=== PATIENT | female | born 1950 | race Caucasian/White ===

== ENCOUNTER → 2016-05-29 | Outpatient (CLI) | payer OTHER ==
[~2016-05-29] MED LIST: ASPCH81X PO; ASPI1TAB83 PO; BIOT1CAP8 PO; CALC-20 PO; GLUC500C4 PO; LUTE1CAP6 PO; MEGA VITAMIN PO; MULTCAP7 PO; OMEGCAP2 PO; PRLSR20 PO; PSYL55.43 PO; SENN-61 PO; VITA400C15 PO; ZINC100T2 PO
--- NOTE | 2016-05-29 12:31 | MAMMOGRAPHY REPORT ---
BILATERAL DIGITAL SCREENING MAMMOGRAM WITH CAD: 05/29/2016 CLINICAL HISTORY: Routine screening. Patient has no complaints. TECHNIQUE: Current study was also evaluated with a Computer Aided Detection (CAD) system. Bilatera l CC and MLO views were obtained. COMPARISON: Comparison is made to exams dated: 05/28/2015 mammogram, 05/25/2014 mammogram, 05/23/2013 mammogram, 05/20/2012 mammogram, 05/15/2011 mammogram, and 05/21/2010 mammogram - [facility]. BREAST COMPOSITION: The tissue of both breasts is almost entirely fatty. FINDINGS: No suspicious masses, calcifications, or areas of architectural distortion are noted in e ither breast. There are multiple new small round circumscribed fat density masses with rim calcific ation in the left 12:00 breast, consistent with benign oil cysts from fat necrosis. Other scattered benign-appearing calcifications are stable. IMPRESSION: ACR BI-RADS CATEGORY 2: BENIGN There is no mammographic evidence of malignancy. A 1 year screening mammogram is recommended. The p atient will receive written notification of the results. Approximately 10% of breast cancers are not detected with mammography. A negative mammographic repor t should not delay biopsy if a clinically suggestive mass is present. Qing Vinson M.D. /:05/29/2016 11:11:32 Application Technician: Latanya BURRR, M, [facility] letter sent: Normal 1/2 BI-RADS Code: ACR BI-RADS Category 2: Benign
== END | disposition home or self-care (01) ==
LOC: C.MAMM 10:04
PROVIDERS: ATTEND Internal Medicine
DX: Z12.31 Encounter for screening mammogram for malignant neoplasm of breast (principal)

== ENCOUNTER → 2016-06-16 | Outpatient (CLI) | payer OTHER ==
--- NOTE | 2016-06-16 08:30 | DIAGNOSTIC IMAGING REPORT ---
RENAL ULTRASOUND HISTORY: Pain. Nausea. R10.31 Bilateral lower abdominal paint complaining of sporadic COMPARISON: None. FINDINGS: Right kidney: Maximum dimension 10.1 cm. No evidence for hydronephrosis Normal corticomedullary differentiation and cortical thickness. Left kidney: Maximum dimension 10.5 cm. No evidence for hydronephrosis. Normal corticomedullary differentiation and cortical thickness. Bladder: No bladder wall thickening. The bilateral ureteral jets were identified. IMPRESSION: Normal study Electronically signed by: Guanaco Durán M.D. 06/16/2016 8:29 AM Dictated Date/Time: 06/16/2016 8:28 AM
== END ==
LOC: C.ULTR 07:50
PROVIDERS: ATTEND Internal Medicine
DX: R10.31 Right lower quadrant pain (principal); R10.32 Left lower quadrant pain

== ENCOUNTER → 2016-07-16 | Day surgery (SDC) | payer OTHER ==
[2016-07-07 09:49] VITALS: BMI 34.0
[~2016-07-16] VITALS: Ht 149.9 cm; Wt 79.5 kg
[~2016-07-16] MED LIST changes: -ASPI1TAB83 PO; +LIDOCAINE HCL 2% 2 ML VIAL (20MG/ML) ONE; +MIDAZOLAM HCL 1 MG/ML 2ML VIAL ONE; +ONDANSETRON INJ 2 MG/ML 2 ML VIAL ONE; +PROPOFOL IV EMULSION 10 MG/ML 20 ML VIAL IV ONE
[2016-07-16 11:22] VITALS: Ht 149.9 cm; Wt 79.5 kg
--- NOTE | 2016-07-16 11:37 | Endo History and Physical ---
History & Physical Date of Service: Jul 16, 2016. Chief Complaint: Jalen lower abd pain Referring Physician: Dr. Devries History of Present Illness 66 yo CF who presents for colonoscopy secondary to bilateral lower quadrant abdominal pain. Past Surgical History Hx Cardiac Surgery: No Hx Internal Defibrillator: No Hx Pacemaker: No Hx Abdominal Surgery: No Hx Post-Op Nausea and Vomiting: No Hx Cancer Surgery: No Hx Thoracic Surgery: No Hx Orthopedic: Yes (LEFT/RT SHOULDER ARTHROSCOPY) Hx Urinary Tract Surgery: No Family History IBD Social History Smoking Status: Never Smoker Hx Substance Use: No Hx Alcohol Use: Yes (OCCASSIONALLY) Allergies Coded Allergies: Sulfa Drugs (Verified Allergy, Mild, YEAST INFECTIONS, 07/07/16) Sulindac (Verified Allergy, Mild, HIVES, 07/07/16) Penicillins (Verified Adverse Reaction, Unknown, YEAST, 07/07/16) Current Medications Reported Home Medications Medications Dose Route/Sig Max Daily Dose Days Date Category [Antonio Vitamin] 1 Tab PO 3XWK 07/07/16 Reported Eye Vitamins (Multiple Vitamins W/ Minerals) 1 Cap Cap 1 Cap PO BID 07/07/16 Reported Aspirin Chewable (Aspirin) 81 Mg Chew 81 Mg PO QPM 07/07/16 Reported Prilosec (Omeprazole) 20 Mg Capcr 20 Mg PO QAM 07/07/16 Reported Biotin 1 Mg Cap 1 Cap PO QAM 11/21/15 Reported Metamucil Powder (Psyllium Hydrophilic Mucilloid) Powd 1 Dose PO HS 07/31/15 Reported Senokot (Senna) 8.6 Mg Tab 1 Tab PO QAM 07/31/15 Reported Vitamin E (mn-Ifumu-Qpuakfnakv Acetate) 400 Inter.unit Cap 400 Inter.unit PO QAM 07/25/12 Reported Glucosamine (Glucosamine Sulfate) 500 Mg Cap 500 Mg PO QAM 07/20/12 Reported Lutein 40 Mg Cap 40 Mg PO QAM 07/20/12 Reported Zinc 100 Mg Tab 1 Tab PO QAM 07/20/12 Reported Fish Oil (Salem-3 Fatty Acids) 1 Cap Cap 1 Capsule PO BIDM 07/20/12 Reported Calcium 600 + D (Calcium Carbonate-Vitamin D) 1 Tab Tab 1 Tablets PO QAM 07/20/12 Reported Vital Signs Weight (Kilograms): 79.55 Height (Feet): 4 Height (Inches): 11 Date Time Temp Pulse Resp B/P Pulse Ox O2 Delivery O2 Flow Rate FiO2 07/16/16 11:29 36.7 65 18 140/88 94 Room Air Physical Exam General Appearance: WD/WN, no apparent distress Respiratory/Chest: Auscultation: breath sounds normal Cardiovascular: Heart Auscultation: RRR Abdomen: Bowel Sounds: normal Inspection & Palpation: soft, non-distended, no tenderness, guarding & rebound Assessment and Plan Assessment: 66 yo CF who presents for colonoscopy secondary to bilateral lower quadrant abdominal pain. Plan: Proceed with colonoscopy.
--- NOTE | 2016-07-16 12:38 | GI REPORT ---
Procedure Date: 07/16/2016 11:54 AM Procedure: Colonoscopy Indications: Abdominal pain in the left lower quadrant, Abdominal pain in the right lower quadrant Medicines: Monitored Anesthesia Care Complications: No immediate complications. Estimated Blood Loss: Estimated blood loss: none. Procedure: Pre-Anesthesia Assessment: - Prior to the procedure, a History and Physical was performed, and patient medications and allergies were reviewed. The patient's tolerance of previous anesthesia was also reviewed. The risks and benefits of the procedure and the sedation options and risks were discussed with the patient. All questions were answered, and informed consent was obtained. Prior Anticoagulants: The patient has taken no previous anticoagulant or antiplatelet agents. ASA Grade Assessment: II - A patient with mild systemic disease. After reviewing the risks and benefits, the patient was deemed in satisfactory condition to undergo the procedure. After I obtained informed consent, the scope was passed under direct vision. Throughout the procedure, the patient's blood pressure, pulse, and oxygen saturations were monitored continuously. The scope was introduced through the anus and advanced to the terminal ileum. The colonoscopy was performed without difficulty. The patient tolerated the procedure well. The quality of the bowel preparation was good. The terminal ileum, ileocecal valve, appendiceal orifice, and rectum were photographed. Findings: Scattered small-mouthed diverticula were found in the entire colon. Non-bleeding internal hemorrhoids were found during retroflexion. The hemorrhoids were small. Impression: - Diverticulosis in the entire examined colon. - Non-bleeding internal hemorrhoids. - No specimens collected. Recommendation: - Resume previous diet. - Continue present medications. - Repeat colonoscopy in 10 years for surveillance. - Return to primary care physician as previously scheduled. Josue Clancy, 07/16/2016 12:38:01 PM This report has been signed electronically. Note Initiated On: 07/16/2016 11:54 AM I attest to the content of the Intraoperative Record and orders documented therein, exceptions below
--- NOTE | 2016-07-16 12:39 | Discharge Instructions ---
Endoscopy Patient Instructions Date / Procedure(s) Performed Jul 16, 2016. Colonoscopy Allergy Information Coded Allergies: Sulfa Drugs (Verified Allergy, Mild, YEAST INFECTIONS, 07/07/16) Sulindac (Verified Allergy, Mild, HIVES, 07/07/16) Penicillins (Verified Adverse Reaction, Unknown, YEAST, 07/07/16) Discharge Date / Findings Jul 16, 2016. Diverticulosis Internal hemorrhoids Medication Instructions OK to resume all medications today as prescribed Reported Home Medications Medications Dose Route/Sig Max Daily Dose Days Date Category [Antonio Vitamin] 1 Tab PO 3XWK 07/07/16 Reported Eye Vitamins (Multiple Vitamins W/ Minerals) 1 Cap Cap 1 Cap PO BID 07/07/16 Reported Aspirin Chewable (Aspirin) 81 Mg Chew 81 Mg PO QPM 07/07/16 Reported Prilosec (Omeprazole) 20 Mg Capcr 20 Mg PO QAM 07/07/16 Reported Biotin 1 Mg Cap 1 Cap PO QAM 11/21/15 Reported Metamucil Powder (Psyllium Hydrophilic Mucilloid) Powd 1 Dose PO HS 07/31/15 Reported Senokot (Senna) 8.6 Mg Tab 1 Tab PO QAM 07/31/15 Reported Vitamin E (hz-Dxsqn-Vxljvcdwid Acetate) 400 Inter.unit Cap 400 Inter.unit PO QAM 07/25/12 Reported Glucosamine (Glucosamine Sulfate) 500 Mg Cap 500 Mg PO QAM 07/20/12 Reported Lutein 40 Mg Cap 40 Mg PO QAM 07/20/12 Reported Zinc 100 Mg Tab 1 Tab PO QAM 07/20/12 Reported Fish Oil (Alden-3 Fatty Acids) 1 Cap Cap 1 Capsule PO BIDM 07/20/12 Reported Calcium 600 + D (Calcium Carbonate-Vitamin D) 1 Tab Tab 1 Tablets PO QAM 07/20/12 Reported Provider Instructions Activity Restrictions - No exercising or heavy lifting for 24 hours. - Do not drink alcohol the day of the procedure. - Do not drive a car or operate machinery until the day after the procedure. - Do not make any important decisions or sign important papers in 24 hours after the procedure. Following Day: - Return to full activity which may include returning to work/school. Diet Start your diet with liquids and light foods (jello, soup, juice, toast). Then eat your usual diet if not nauseated. Treatment For Common After Affects For mild abdominal pain, bloating, or excessive gas: - Rest - Eat lightly - Lie on right side Follow-Up Information Follow-up with Dr. Devries as scheduled Anesthesia Information What You Should Know You have had a procedure that required some medicine to reduce anxiety and discomfort. This treatment is called moderate sedation. After receiving the treatment, you may be sleepy, but you will be able to breathe on your own. The effects of the treatment may last for several hours. Follow these instructions along with Activity/Diet recommendations noted above: * Do NOT do anything where dizziness or clumsiness would be dangerous. * Rest quietly at home today, then you can be up and about tomorrow. * Have a responsible person stay with you the rest of today. * You may have had an I.V. today. If so, you may take the dressing off later today. Recommendations Call your doctor if: * Trouble breathing * Continuous vomiting for more than 24 hours * Temperature above 101 degrees * Severe abdominal pain or bloating * Pain not relieved by pain medicine ordered * There is increased drainage or redness from any incision * A large amount of rectal bleeding greater than 2-3 tablespoons. (If you had a polyp/s removed or have hemorrhoids, a small amount of blood - from the rectum is to be expected.) * You have any unanswered questions or concerns. IN THE EVENT OF A SERIOUS EMERGENCY, GO TO THE NEAREST EMERGENCY ROOM Your discharge instructions were prepared by provider Josue Clancy. Patient Instructions Signature Page Latoya Moran Patient (or Guardian) Signature/Date: I have read and understand the instructions given to me by my caregivers. Caregiver/RN/Doctor Signature/Date: The above-named patient and/or guardian has received patient instructions on this date. + Original Patient Signature Page (only) stays with chart. Please make copy for patient.
[2016-07-16 12:48] VITALS: BP 143/85; PULSE 62; O2SAT 96
--- NOTE | 2016-07-16 14:53 | Anesthesiology Progress Note ---
Anesthesia Post Op Note Date & Time Jul 16, 2016 at 14:52 Vital Signs Pain Intensity: 0 Vital Signs Past 12 Hours Date Time Temp Pulse Resp B/P Pulse Ox O2 Delivery O2 Flow Rate FiO2 07/16/16 12:48 62 16 143/85 96 Room Air 07/16/16 12:33 69 16 143/85 95 Room Air 07/16/16 12:18 70 16 115/57 95 Room Air 07/16/16 11:29 36.7 65 18 140/88 94 Room Air Notes Mental Status: alert / awake / arousable, participated in evaluation Pt Amnestic to Procedure: Yes Nausea / Vomiting: adequately controlled Pain: adequately controlled Airway Patency, RR, SpO2: stable & adequate BP & HR: stable & adequate Hydration State: stable & adequate Anesthetic Complications: no major complications apparent
== END | disposition home or self-care (01) ==
LOC: C.GI 11:08
PROVIDERS: ATTEND Internal Medicine
DX: R10.31 Right lower quadrant pain (principal); R10.32 Left lower quadrant pain; K57.30 Diverticulosis of large intestine without perforation or abscess without bleeding; K64.8 Other hemorrhoids; Z79.82 Long term (current) use of aspirin

== ENCOUNTER → 2016-07-23 | Outpatient (CLI) | payer OTHER ==
[~2016-07-23] MED LIST changes: -LIDOCAINE HCL 2% 2 ML VIAL (20MG/ML) ONE; -MIDAZOLAM HCL 1 MG/ML 2ML VIAL ONE; -ONDANSETRON INJ 2 MG/ML 2 ML VIAL ONE; -PROPOFOL IV EMULSION 10 MG/ML 20 ML VIAL IV ONE
[2016-07-23 13:52] LABS: ESTIMATED AVERAGE GLUCOSE 123 mg/dl; HA1C FLAG Normal (Normal)
[2016-07-23 15:21] LABS: ALB/GLOB RATIO 0.9 (0.9-2); ALT/SGPT 27 U/L (12-78); AST/SGOT 22 U/L (15-37); BLOOD UREA NITROGEN 13 mg/dl (7-18); BUN/CREATININE RATIO 19.2 (10-20); CALCIUM 8.6 mg/dl (8.5-10.1); CARBON DIOXIDE 28 mmol/L (21-32); CHLORIDE 109 mmol/L (98-107); CHOLESTEROL 188 mg/dl (0-200); CREATININE 0.68 mg/dl (0.60-1.20); GLUCOSE 105 mg/dl (70-99); SODIUM 142 mmol/L (136-145)
[2016-07-23 15:23] LABS: ALKALINE PHOSPHATASE 84 U/L (45-117); CHOLESTEROL/HDL RATIO 2.8; HDL CHOLESTEROL 67 mg/dl; LDL CHOLESTEROL CALCULATED 110 mg/dl; TRIGLYCERIDES 53 mg/dl (0-150); VERY LOW DENSITY LIPOPROT CALC 11 mg/dl
--- NOTE | 2016-07-28 12:40 | CODING QUERY MEDICAL NECESSITY ---
SUPPORTING DIAGNOSIS NEEDED A supporting diagnosis is required for the test/procedure performed on this patient in order for us to be reimbursed by the patient's insurance. Please provide a supporting diagnosis for the following test/procedure listed below next to the test name along with your signature. *If there is no additional diagnosis for this patient that would support the following test/procedure please document that below next to the test/procedure. Test(s)/Procedure(s) that require a supporting diagnosis: DOS 07/23 * Hba1c DIAGNOSIS: * Lipids DIAGNOSIS: Provider Signature: Date: Thank you Aide [facility] Health Information Management Once completed, please kindly fax back to [phone] For questions please call [phone]
== END | disposition home or self-care (01) ==
LOC: C.LABBC 09:18
PROVIDERS: ATTEND Internal Medicine
DX: R73.03 Prediabetes (principal); E88.9 Metabolic disorder, unspecified

== ENCOUNTER → 2017-06-01 | Outpatient (CLI) | payer OTHER ==
--- NOTE | 2017-06-02 07:57 | MAMMOGRAPHY REPORT ---
BILATERAL DIGITAL SCREENING MAMMOGRAM TOMOSYNTHESIS WITH CAD: 06/01/2017 CLINICAL HISTORY: Routine screening. TECHNIQUE: Breast tomosynthesis in addition to standard 2D mammography was performed. Current study was also evaluated with a Computer Aided Detection (CAD) system. COMPARISON: Comparison is made to exams dated: 05/29/2016 mammogram, 05/28/2015 mammogram, 05/25/2014 m ammogram, 05/23/2013 mammogram, 05/20/2012 mammogram, and 05/15/2011 mammogram - [facility] nter. BREAST COMPOSITION: The tissue of both breasts is almost entirely fatty. FINDINGS: There are innumerable subcentimeter benign oil cysts throughout the superior left breast. A 5 mm round circumscribed mass in the slightly lateral, middle one third of the right breast on the cc view is unchanged in size dating back to at least 2012, therefore considered benign. No suspicio us spiculated or irregular mass, architectural distortion or cluster of microcalcifications is seen. IMPRESSION: ACR BI-RADS CATEGORY 1: NEGATIVE There is no mammographic evidence of malignancy. A 1 year screening mammogram is recommended. The pa tient will receive written notification of the results. Approximately 10% of breast cancers are not detected with mammography. A negative mammographic report should not delay biopsy if a clinically suggestive mass is present. Agata Schwartz M.D. ay/:06/01/2017 16:28:38 Commercial Sales Consultant: Markie LEONARD)(Ibrahima), [facility] letter sent: Normal 1/2 BI-RADS Code: ACR BI-RADS Category 1: Negative
== END | disposition home or self-care (01) ==
LOC: C.MAMM 10:03
PROVIDERS: ATTEND Internal Medicine
DX: Z12.31 Encounter for screening mammogram for malignant neoplasm of breast (principal)

== ENCOUNTER → 2017-08-14 | Outpatient (CLI) | payer OTHER ==
[2017-08-14 13:08] LABS: HEMOGLOBIN A1C 5.9 % (4.5-5.6)
[2017-08-14 13:52] LABS: BLOOD UREA NITROGEN 15 mg/dl (7-18); CREATININE 0.69 mg/dl (0.60-1.20); GLUCOSE 109 mg/dl (70-99)
[2017-08-14 13:53] LABS: ALT/SGPT 35 U/L (12-78); AST/SGOT 24 U/L (15-37); CALCIUM 8.4 mg/dl (8.5-10.1); CARBON DIOXIDE 25 mmol/L (21-32); CHOLESTEROL 182 mg/dl (0-200); POTASSIUM 4.1 mmol/L (3.5-5.1); SODIUM 140 mmol/L (136-145)
[2017-08-14 14:06] LABS: LDL CHOLESTEROL CALCULATED 101 mg/dl
== END | disposition home or self-care (01) ==
LOC: C.LABBC 09:39
PROVIDERS: ATTEND Internal Medicine
DX: E88.9 Metabolic disorder, unspecified (principal); R73.03 Prediabetes

== ENCOUNTER → 2017-08-27 | Outpatient (CLI) | payer OTHER ==
--- NOTE | 2017-08-27 12:08 | DIAGNOSTIC IMAGING REPORT ---
CERVICAL SPINE 2 OR 3 VIEWS CLINICAL HISTORY: Neck pain. No trauma. COMPARISON STUDY: No previous studies for comparison. FINDINGS: Note is made of reversal the normal cervical lordosis with slight anterolisthesis of C4 on C5 and slight retrolisthesis of C5 on C6. There is severe disc space narrowing with osteophytosis at C5-C6 and C6-C7. There is moderate to severe multilevel facet arthrosis. Prevertebral soft tissues are unremarkable. There is no acute fracture. IMPRESSION: 1. No acute cervical spine fracture. 2. Moderate to severe multilevel degenerative disc disease and facet arthrosis most pronounced at C5-C6 and C6-C7. 3. Reversal of normal cervical lordosis. Electronically signed by: Jovi Crabtree M.D. 08/27/2017 12:07 PM Dictated Date/Time: 08/27/2017 12:05 PM
== END | disposition home or self-care (01) ==
LOC: C.RAD1850 11:34
PROVIDERS: ATTEND Physician Assistant
DX: M50.30 Other cervical disc degeneration, unspecified cervical region (principal)

== ENCOUNTER → 2017-11-16 | Outpatient (CLI) | payer OTHER ==
[2017-11-16 18:20] LABS: HEMATOCRIT 32.5 % (37-47); HEMOGLOBIN 10.4 g/dL (12.0-16.0); MEAN CORPUSCULAR HEMOGLOBIN 28.8 pg (25-34); MEAN PLATELET VOLUME 11.2 fL (7.4-10.4); PLATELET COUNT 257 K/uL (130-400); RED CELL DISTRIBUTION WIDTH CV 13.4 % (11.5-14.5); RED CELL DISTRIBUTION WIDTH SD 44.5 fL (36.4-46.3)
== END | disposition home or self-care (01) ==
LOC: C.LAB1850 15:44
PROVIDERS: ATTEND Internal Medicine
DX: Z90.49 Acquired absence of other specified parts of digestive tract (principal); Z87.19 Personal history of other diseases of the digestive system

== ENCOUNTER → 2017-11-24 | Outpatient (CLI) | payer OTHER ==
--- NOTE | 2017-11-24 12:27 | DIAGNOSTIC IMAGING REPORT ---
ABDOMEN 2VIEW W/PA CHEST RTN HISTORY: 67 years-old Female R10.9 Abdominal painrule out intestinal obstruction acute generalized abdominal pain COMPARISON: Lumbar spine radiographs 02/14/2015 TECHNIQUE: PA view of the chest with erect and supine views of the abdomen FINDINGS: Moderate hemidiaphragmatic elevation. Cardiomediastinal and hilar silhouettes are within normal limits. No pneumothorax, pleural effusion, focal airspace consolidation or overt pulmonary edema. Degenerative changes of the shoulders and spine. No pneumoperitoneum or pneumatosis identified. There is moderate formed colonic stool throughout the cecum, ascending and proximal transverse colon. Bowel gas pattern is nonobstructive. Surgical clips project over the central pelvis. No urolith identified. Convex left curvature of the lumbar spine. Degenerative changes of the spine and pelvis. IMPRESSION: 1. No acute processes of the chest. 2. Nonobstructive bowel gas pattern without pneumoperitoneum. 3. Suggested constipation. The above report was generated using voice recognition software. It may contain grammatical, syntax or spelling errors. Electronically signed by: Conrado Ramirez M.D. 11/24/2017 12:26 PM Dictated Date/Time: 11/24/2017 12:23 PM
[2017-11-24 13:50] LABS: BASO % 0.8 %; BASO ABS # 0.04 K/uL (0-0.2); EOS % 3.9 %; EOS ABS # 0.19 K/uL (0-0.5); HEMATOCRIT 34.9 % (37-47); HEMOGLOBIN 11.5 g/dL (12.0-16.0); IG# 0.01 K/uL (0.00-0.02); LYMPH % 30.1 %; LYMPH ABS # 1.46 K/uL (1.2-3.4); MEAN CELL VOLUME 87.3 fL (80-100); MEAN CORPUSCULAR HEMOGLOBIN 28.8 pg (25-34); MEAN PLATELET VOLUME 10.9 fL (7.4-10.4); MONO % 11.3 %; MONO ABS # 0.55 K/uL (0.11-0.59); NEUT % 53.7 %; PLATELET COUNT 244 K/uL (130-400); RED CELL DISTRIBUTION WIDTH CV 13.1 % (11.5-14.5); RED CELL DISTRIBUTION WIDTH SD 42.4 fL (36.4-46.3); WHITE BLOOD COUNT 4.85 K/uL (4.8-10.8)
== END | disposition home or self-care (01) ==
LOC: C.RADBC 11:36
PROVIDERS: ATTEND Family Medicine Adult Medicine
DX: R10.9 Unspecified abdominal pain (principal)